=== PATIENT | female | born 1995 | race Two or more races ===

== ENCOUNTER → 2023-11-19 | Emergency (ER) | payer BC ==
[~2023-11-19] VITALS: Ht 152.4 cm; Wt 74.8 kg
[~2023-11-19] MED LIST: TRAMADOL HCL 50 MG TABLET PO ONE
== END | disposition home or self-care (01) ==
LOC: ER 17:27
DX: S80.01XA Contusion of right knee, initial encounter (principal); W18.39XA Other fall on same level, initial encounter; Y93.89 Activity, other specified; Y92.821 Forest as the place of occurrence of the external cause; Y99.9 Unspecified external cause status